=== PATIENT | male | born 1965 | race Caucasian/White ===

== ENCOUNTER 2019-06-16 06:35 | Day surgery (SDC) | payer OTHER ==
[~2019-06-16 06:35] MED LIST: LOSARTAN-HCTZ1 EACH PO; NO TOMA MEDICAMENTOS; NORFLEX100 MG PO; SIMVASTATIN20 MG PO; TORADOL10 MG PO; TRAMADOL HCL-AP1 TAB PO
== END 2019-06-16 14:50 | disposition home or self-care (01) ==
LOC: CIR.AMB 06:35
DX: M72.0 Palmar fascial fibromatosis [Dupuytren] (principal)

== ENCOUNTER 2020-06-21 05:46 | Day surgery (SDC) | payer OTHER | END 2020-06-21 22:50 | disposition home or self-care (01) | LOC: CIR.AMB 05:46 | PROVIDERS: ATTEND Orthopaedic Surgery Hand Surgery | DX: M19.042 Primary osteoarthritis, left hand (principal); M72.0 Palmar fascial fibromatosis [Dupuytren]; Z20.828 Contact with and (suspected) exposure to other viral communicable diseases ==